=== PATIENT | male | born 1985 | race Caucasian/White ===

== ENCOUNTER 2020-10-28 14:17 | Emergency (ER) | payer MEDICAID, OTHER ==
[~2020-10-28] VITALS: Ht 172.7 cm; Wt 79.4 kg
[2020-10-28 14:20] VITALS: BP 138/92
[2020-10-28] MEDS ORDERED: HYDROcodone-ACET 5/325MG TAB PO ONE (17:00)
[2020-10-28] MEDS ORDERED: TETANUS-DIPTH-ACEL PERTUSSIS 0.5ML SYR Tdap IM ONE (18:30)
[2020-10-28] MEDS ORDERED: cefTRIAXone SOD 1,000 MG VL ONE (19:03)
[2020-10-28] MEDS ORDERED: LIDOCAINE 1% HCL (LOCAL ANESTH.) INJ 20ML MDV ONE (19:04)
== END 2020-10-28 19:35 | disposition home or self-care (01) ==
LOC: ER 14:17
DX: S61.412A Laceration without foreign body of left hand, initial encounter (principal); V87.8XXA Person injured in other specified noncollision transport accidents involving motor vehicle (traffic), initial encounter; Y93.89 Activity, other specified; Y92.89 Other specified places as the place of occurrence of the external cause; Y99.8 Other external cause status
CPT/HCPCS: 12002; 73130; 96372; 99283; J0696; J2001